=== PATIENT | female | born 1980 | race Caucasian/White ===

== ENCOUNTER 2017-01-24 06:34 | Inpatient (IN) | payer SELFPAY ==
[2017-01-24 06:49] VITALS: BMI 42.7
--- NOTE | 2017-01-24 06:59 | OBADHP ---
Datetime: 01/24/2017 06:49 Admit Comment, IP Provider: at 38+weeks came with ctxs started in AM. PT IS HERE FOR INDUCTION OF LABOR, NO VB, LOF,+FM. obhx 1 x pmh den med pnv all nkda psh de soch den ve closed a/p at 38+weeks here for induction admit to l_d npo/ivf labs cont alize and efm pain manaement anticipate Pelvic Type - PN: Adequate Extremities - PN: Normal Abdomen - PN: Normal Back - PN: Normal Breast - PN: Normal Lungs - PN: Normal Heart - PN: Normal Thyroid - PN: Normal Neurologic - PN: Normal HEENT - PN: Normal General - PN: Normal FHR - Baseline A Provider: 120 Contraction Comments Provider: q1-3 Vital Signs Provider: Reviewed; Within Normal Limits IP Chief Complaint: Uterine contractions NICHD Variability Prov Fetus A: Moderate 6-25bpm NICHD Accel Fetus A IP Provider: [id number] FHR Category Provider Fetus A: Category I Dilatation, Provider: 0 Effacement, Provider: 0 Station, Provider: -3 Genitourinary Exam: Normal DTRs - PN: Normal EGA AdmitDate IP: 38.6 IP Adm Impression: Term, intrauterine IP Admit Plan: Admit to unit; Initiate labor protocol
[2017-01-24] MEDS ORDERED: Lactated Ringer's 1,000 ML IV SCH (07:00)
[2017-01-24 08:39] LABS: BASO % 0.2 % (0.0-2.0); EOS # 0.1 K/uL (0.0-0.7); EOS % 1.5 % (0.0-4.0); HEMATOCRIT 34.2 % (34.0-47.0); LYMPH # 1.9 K/uL (1.0-4.3); LYMPH % 20.4 % (20.0-40.0); MEAN CELL VOLUME 81.1 fL (81.0-99.0); MEAN CORPUSCULAR HEMOGLOBIN 26.1 pg (27.0-31.0); MEAN CORPUSCULAR HGB CONC 32.2 g/dL (33.0-37.0); MEAN PLATELET VOLUME 8.1 fL (7.2-11.7); MONO # 0.9 K/uL (0.0-0.8); MONO % 9.9 % (0.0-10.0); NRBC % 0.1 % (0.0-2.0); RED CELL DISTRIBUTION WIDTH 17.5 % (11.5-14.5); WHITE BLOOD COUNT 9.2 K/uL (4.8-10.8)
[2017-01-24 08:40] LABS: CHLORIDE 101 mmol/L (98-107)
[2017-01-24 08:41] LABS: POTASSIUM 3.8 mmol/L (3.6-5.2); SODIUM 132 mmol/L (132-148)
[2017-01-24 08:43] LABS: ALB/GLOB RATIO 0.9 (1.0-2.1); ALKALINE PHOSPHATASE 258 U/L (38-126); AST/SGOT 17 U/L (14-36); BILIRUBIN,TOTAL 0.5 mg/dL (0.2-1.3); BLOOD UREA NITROGEN 10 mg/dL (7-17); CARBON DIOXIDE 18 mmol/L (22-30); GFR AFRICAN-AMERICAN > 60; GLUCOSE,RANDOM 79 mg/dL (65-105); TOTAL PROTEIN 6.2 g/dL (6.3-8.3)
[2017-01-24 08:44] LABS: ALT/SGPT 22 U/L (9-52); CALCIUM 9.3 mg/dl (8.6-10.4)
[2017-01-24 08:49] LABS: RBC URINE 4 /hpf (0-3); URINE BACTERIA MANY (<OCC); URINE BILIRUBIN NEGATIVE (NEGATIVE); URINE BLOOD NEGATIVE (NEGATIVE); URINE COLOR Yellow (YELLOW); URINE GLUCOSE (UA) NORMAL (Normal); URINE KETONE NEGATIVE (NEGATIVE); URINE LEUKOCYTE ESTERASE 2+ Leu/uL (Negative); URINE PROTEIN 1+ mg/dL (NEGATIVE); URINE UROBILINOGEN NORMAL mg/dL (0.2-1.0); WBC URINE 18 /hpf (0-5)
[2017-01-24] MEDS ORDERED: Sodium Citrate/Citric Acid 15 ml Sol PO ONE (12:15)
[2017-01-24] MEDS ORDERED: cefOXitin IV 2 gm in Dextrose 2 GM/50 ML BAG IVPB ONE ×2 (12:15→12:18)
[2017-01-24] MEDS ORDERED: Morphine 1 mg/ml preservative-free Inj(Duramorph) ONE (12:27)
[2017-01-24] MEDS ORDERED: Oxytocin 20 units in LR 2,000 ML IV ONE (12:48)
[2017-01-24] MEDS ORDERED: Rocuronium 10 mg/ml (5 ml) ONE (14:58)
[2017-01-24] MEDS ORDERED: Succinylcholine Chloride 20 mg/ml Syr (5 ml) IV ONE (14:58)
[2017-01-24] MEDS ORDERED: Propofol 10 mg/ml Inj (20 ML) ONE (14:58)
[2017-01-24] MEDS ORDERED: Midazolam 2 MG/2 ML VIAL ONE (14:58)
[2017-01-24] MEDS ORDERED: Bupivacaine HCl 0.25% PF (10 ml) Inj ONE (15:37)
[2017-01-24] MEDS: Simethicone 80 mg Chewtab PO SCH (18:06)
[2017-01-24] MEDS: cefOXitin IV 2 gm in Dextrose 2 GM/50 ML BAG IVPB SCH (20:08)
[2017-01-25] MEDS ORDERED: cefOXitin IV 2 gm in Dextrose 2 GM/50 ML BAG IVPB ONE (02:46)
[2017-01-25] MEDS: cefOXitin IV 2 gm in Dextrose 2 GM/50 ML BAG IVPB SCH ×2 (04:00→12:30)
[2017-01-25] MEDS: Simethicone 80 mg Chewtab PO SCH ×3 (05:43→21:51)
[2017-01-25] MEDS: Oxycodone/Acetaminophen 5/325 mg Tab PO PRN ×3 (08:12→18:42)
[2017-01-25 09:40] LABS: BASO % 0.1 % (0.0-2.0); EOS % 0.3 % (0.0-4.0); HEMATOCRIT 26.9 % (34.0-47.0); LYMPH % 8.3 % (20.0-40.0); MEAN CELL VOLUME 80.8 fL (81.0-99.0); MEAN CORPUSCULAR HEMOGLOBIN 26.1 pg (27.0-31.0); MEAN CORPUSCULAR HGB CONC 32.3 g/dL (33.0-37.0); MEAN PLATELET VOLUME 7.5 fL (7.2-11.7); MONO # 1.2 K/uL (0.0-0.8); MONO % 10.1 % (0.0-10.0); PLATELET COUNT 160 K/uL (130-400); RED CELL DISTRIBUTION WIDTH 17.4 % (11.5-14.5); WHITE BLOOD COUNT 12.2 K/uL (4.8-10.8)
[2017-01-25 10:45] LABS: BASOPHIL 1 % (0-2); NEUTROPHIL 80 % (50-75); TOTAL CELLS COUNTED 100
--- NOTE | 2017-01-25 14:20 | OBDS ---
DELIVERY PERSONNEL Delivery Doctor: Camacho Martin MD Scrub Nurse: Hannah Mcwilliams Anesthesiologist: Naina Rudolph MD MATERNAL INFORMATION Delivery Anesthesia: Epidural; Spinal; General Medications in Delivery: methergine given by dr rudolph Estimated Blood Loss (ml): 500 Placenta Cultured: No Maternal Complications: None RN Comments: spinal attempted x 20 minutes, unable to get spinal in, epidural given, epidural not wo rking, general anethesia given, cord around shoulder body and arm of baby at [facility], on upper inner aspect of left bicep. 1cm round bloody area noted by dr montoya, cleaned and bandage applied, paren t notified by dr montoya Provider Comments: Inverted "T" incision made on thick lower uterine incision. Baby's position was c ompound, Right oblique position with cord aroun arm, neck, shouder and body. Vacuum assisted delivery was done. EBL 700 cc. LABOR SUMMARY EDC: 02/01/2017 00:00 No. Babies in Womb: 1 Attempted: No Labor Anesthesia: None LABOR INFORMATION Reason for Induction: Polyhydramnios Oxytocin: N/A Group B Beta Strep: Negative Antibiotics # of Doses: 0 Steroids Given: None Reason Steroids Not Administered: Not Applicable MEMBRANES Membranes Rupture Method: Artificial Rupture of Membranes: 01/24/2017 14:10 Length of Rupture (hrs): 0.03 Amniotic Fluid Color: Bloody Amniotic Fluid Amount: Copious Amniotic Fluid Odor: None STAGES OF LABOR Stage 3 hrs: 0 Stage 3 min: 3 VAGINAL DELIVERY Initial Vag Sponge Count: 25 Final Vag Sponge Count: 25 Initial Vag Sharps Count: 9 Final Vag Sharps Count: 14 Sponge Count Correct: Yes; Vaginal Sweep Performed Sharps Count Correct: Yes Count Comment: md notified of correct count CSECTION DELIVERY Other Primary Indication: cpd Secondary Indication: Failure of Descent Other Secondary Indication: compound presentation CSection Urgency: Elective CSection Incidence: Primary Labor: N/A Elective: Elective CSection Incision: Lower Uterine Transverse BABY A INFORMATION Delivery Date/Time: 01/24/2017 14:12 Method of Delivery: Born in Route : No : N/A Forceps: N/A Vacuum Extraction: Failed Shoulder Dystocia : No ASSISTED DELIVERY BABY A Indication for Assisted Delivery: head high in abd Catheter Prior to Procedure: Yes Position Vacuum/Forcep Apply: Left Occipital Anterior Vacuum Number of Pulls: 3 Vacuum Number of PopOffs: 3 Reduce Pressure btwn Ctx: Yes Vacuum Curriculum And Instruction Director: mystic 2 Total Time Vacuum Applied: 3 Vacuum/Forceps Comment: vaccum placed on baby head three times, popped off each time while pulling SHOULDER DYSTOCIA BABY A Delivery Date/Time: 01/24/2017 14:12 PRESENTATION/POSITION BABY A Presentation: Compound Cephalic Presentation: N/A Breech Presentation: N/A PLACENTA INFORMATION BABY A Placenta Delivery Time : 01/24/2017 14:15 Placenta Method of Delivery: Manual Removal Placenta Status: Delivered SCORES BABY A Heart Rate 1 min: >100 bpm Resp Effort 1 min: Slow, Irregular Reflex Irritability 1 min: Cough or Sneeze or Pulls Away Muscle Tone 1 min: Active Motion Color 1 min: Body [place], Extremities Blue Resuscitation Effort 1 min: Tactile Stimulation; Oxygen SCORE 1 MIN: 8 Heart Rate 5 min: >100 bpm Resp Effort 5 min: Good Cry Reflex Irritability 5 min: Cough or Sneeze or Pulls Away Muscle Tone 5 min: Active Motion Color 5 min: Body [place], Extremities Blue Resuscitation Effort 5 min: Tactile Stimulation; Oxygen SCORE 5 MIN: 9 INFANT INFORMATION BABY A Gestational Age at Delivery: 38.6 Gestational Status: Term Outcome : Liveborn Condition : Stable Infant Sex: Female IDENTIFICATION/MEDS BABY A ID Band Number: [id number] ID Band Location: Left Leg; Left Arm Sensor Applied: Yes Sensor Number: [id number] Sensor Location : Cord Clamp WEIGHT/LENGTH BABY A Birthweight (gms): 3640 Infant Weight (lb): 8 Weight (oz): 0 Infant Length Inches: 20.50 Length cms: 52.1 CORD INFORMATION BABY A No. Cord Vessels: 3 Nuchal Cord : N/A Cord Blood Taken: Yes Infant Suction: None; Mouth
--- NOTE | 2017-01-25 14:27 | OBPPN ---
Datetime: 01/25/2017 14:24 PP Pain Prov: Within normal limits PP Breasts Prov: Normal PP Heart Prov: Normal PP Lungs Prov: Normal PP Abdomen/Uterus Prov: Normal PP Lochia Prov: Normal PP Vulva/Perineum Prov: Normal PP CVA Tenderness Prov: Normal PP Extremities Prov: Normal PP C/S Incision Prov: Normal PP Impression Prov: Normal progression PP Plan Prov: Continue present management PP Progress Note Prov: No C/O VS Stable Abdomen Soft Wound Clean P: Advance diet
--- NOTE | 2017-01-26 04:44 | OP ---
PROCEDURE DATE: 01/24/2017 NATURE OF OPERATION: Primary section. OPERATING SURGEON: Ralf Martin MD BELT PRESS OPERATOR: Erick Vega MD SCRUB WOMAN: Chica Saldaña MD KIND OF ANESTHESIA: Attempted spinal and epidural anesthesia, then converted to general anesthesia. PREOPERATIVE DIAGNOSIS: A 38-39 weeks , cephalopelvic disproportion with compound right oblique presentation. POSTOPERATIVE DIAGNOSES: Live female, 8 pounds 0 ounces, Apgars 8 and 9, polyhydramnios, quarter on arm, neck, shoulder, and body. DESCRIPTION OF PROCEDURE: The patient was placed in supine position after the spinal anesthesia, then converted to general anesthesia. The abdomen was prepped and draped for Pfannenstiel incision. A Pfannenstiel incision was made between the symphysis pubis and umbilicus and was carried down to rectus fascia. Fascia was cleaned and incised the length of the incision. The recti were retracted laterally. The transversalis fascia identified and mobilized superiorly. The peritoneum was then incised the length of the incision. The vesicouterine fold of the visceral peritoneum was identified and incised transversally between the round ligament. The bladder flap was developed, mobilized inferiorly by blunt dissection. A transverse incision was made into the anterior wall of the lower uterine segment, which was very thick and bleeding and entered with finger and extended laterally towards the round ligament. Membranes were incised and the amniotic fluid was clear. The patient was delivered from the right oblique compound presentation with a vertex and left shoulder and inverted T-shape was made to extended and unable to delivered the head, so the vacuum assisted delivery was performed and delivered living female infant in good condition at exactly 2:12 p.m. on 01/24/2017, Apgars 8 and 9 presenting part which was compound presentation with floating. Placenta was on the posterior wall near the fundus. There were quarter on the arm, neck, and shoulder and body with somewhat flattened umbilical cord, which was sent to pathology along with the placenta. The placenta was on the posterior wall near the fundus and membrane and placenta were completely removed manually. The uterus was closed in 2 layers with continue suture of Chromic #1 gut, first layer including myometrium, second layer imbricating myometrium, and bleeding points were controlled with intraoperative mattress suture of Chromic #1 catgut. The bladder flap was reattached with continue suture of Chromic #2 catgut on an atraumatic needle. The uterus was well contracted. Tubes and ovaries were normal. Hemostasis was satisfactory and lap and sponge count were reported as correct. Abdomen was closed in layers, peritoneum with continuous suture of Chromic #0 catgut on an atraumatic needle. Fascia running interlocking sutures of 0 Vicryl and subcutaneous tissue was closed with the #2-0 plain catgut and the skin was closed with the ekaterina and the patient tolerated the procedure well and was sent to the recovery room in satisfactory condition. Ralf Martin MD
[2017-01-26] MEDS: Oxycodone/Acetaminophen 5/325 mg Tab PO PRN ×5 (07:01→21:43)
[2017-01-26] MEDS: Simethicone 80 mg Chewtab PO SCH ×4 (10:04→21:59)
--- NOTE | 2017-01-26 18:41 | OBPPN ---
Datetime: 01/26/2017 18:38 PP Pain Prov: Within normal limits PP Breasts Prov: Normal PP Heart Prov: Normal PP Lungs Prov: Normal PP Abdomen/Uterus Prov: Normal PP Lochia Prov: Normal PP Vulva/Perineum Prov: Normal PP CVA Tenderness Prov: Normal PP Extremities Prov: Normal PP C/S Incision Prov: Normal PP Impression Prov: Normal progression PP Plan Prov: Continue present management PP Progress Note Prov: No C/O VS Stable Abdomen Soft Wound Clean P: Advance Diet IP PP Procedures: None
[2017-01-27] MEDS: Oxycodone/Acetaminophen 5/325 mg Tab PO PRN ×3 (02:48→12:06)
[2017-01-27] MEDS: Simethicone 80 mg Chewtab PO SCH ×4 (10:33→17:32)
[2017-01-27 17:02] VITALS: RESP 20
--- NOTE | 2017-01-27 17:43 | OBPPN ---
Datetime: 01/27/2017 17:39 PP Breasts Prov: Normal PP Heart Prov: Normal PP Lungs Prov: Normal PP Abdomen/Uterus Prov: Normal PP Lochia Prov: Normal PP Vulva/Perineum Prov: Normal PP CVA Tenderness Prov: Normal PP Extremities Prov: Normal PP C/S Incision Prov: Normal PP Impression Prov: Normal progression PP Plan Prov: Continue present management PP Progress Note Prov: POD #3 No C/O VS Stable Abdomen Soft Wound Clean P: Home today IP PP Procedures: None
--- NOTE | 2017-01-27 17:47 | OBDCSUM ---
Datetime: 01/27/2017 17:42 Discharged to, Provider: Home Follow up at, Provider: Dr. Martin Disch Instr Activity: Bedrest; May Shower Disch Instr Diet: Regular Discharge Instructions, Provider: Routine instructions given Discharge Diagnosis, Provider: Term Delivered Discharge Time: 01/27/2017 17:42 Follow up in weeks, Provider: 1 week Disch Referrals: None Disch Activity Restrictions: No exercising; No lifting; Minimize walking; Minimize stair-climbing; N o sexual activity; Nothing in vagina - [place], tampons, douche Contraception after Delivery: Not Planning to Use
[2017-01-28 02:49] VITALS: BP 110/70; PULSE 95; TEMP 99; O2SAT 99
== END 2017-01-27 21:45 | disposition hospice, home (50) | DRG 766 ==
LOC: C.EROB 06:34 → C.4D 06:38 → C.4M 17:32
PROVIDERS: ADMIT Obstetrics & Gynecology Gynecology; ATTEND Obstetrics & Gynecology Gynecology
PROC: 10D00Z1 Extraction of Products of Conception, Low, Open Approach (ICD-10-PCS; principal; 2017-01-24)
DX: O40.3XX0 Polyhydramnios, third trimester, not applicable or unspecified (principal); O32.2XX0 Maternal care for transverse and oblique lie, not applicable or unspecified; O32.4XX0 Maternal care for high head at term, not applicable or unspecified; O33.9 Maternal care for disproportion, unspecified; O69.81X0 Labor and delivery complicated by cord around neck, without compression, not applicable or unspecified; Z37.0 Single live birth; Z3A.38 38 weeks gestation of pregnancy; O32.6XX0 Maternal care for compound presentation, not applicable or unspecified